=== PATIENT | male | born 1965 | race Caucasian/White ===

== ENCOUNTER → 2023-08-25 15:08 | Outpatient (REF) | payer OTHER, SELFPAY | LOC: DHCBC MAIN 15:08 | PROVIDERS: ATTENDING PHYSICIAN Internal Medicine; FAMILY PHYSICIAN Family Medicine Sports Medicine | DX: I10 Essential (primary) hypertension (principal); I44.0 Atrioventricular block, first degree; R00.2 Palpitations | CPT/HCPCS: 93306 ==

== ENCOUNTER → 2023-09-03 08:50 | Outpatient (REF) | payer OTHER, SELFPAY | LOC: WDC 08:50 | PROVIDERS: ATTENDING PHYSICIAN Family Medicine Sports Medicine | DX: N63.20 Unspecified lump in the left breast, unspecified quadrant (principal) | CPT/HCPCS: 76642; 77062; 77066 ==